=== PATIENT | male | born 1985 | race Caucasian/White ===

== ENCOUNTER 2024-08-15 19:20 | Emergency (ER) | payer OTHER ==
[~2024-08-15] VITALS: Ht 180.3 cm; Wt 82.3 kg
[2024-08-15] MEDS ORDERED: FEXO-116 PO (19:26)
[2024-08-15] MEDS: ACETAMINOPHEN 325 MG TAB PO ONE (20:45)
[2024-08-15] MEDS ORDERED: AMOX875T2 PO (20:54)
[2024-08-15] MEDS: AUGMENTIN 875 MG TAB PO ONE (20:57)
[2024-08-15] MEDS: BOOSTRIX VACCINE (TETANUS/DIPHTH/ACEL. PERTUSSIS) 0.5ML SYR IM.IMMUN ONE (20:58)
[2024-08-15] MEDS: OXYCODONE/APAP 5MG/325MG(HOME DOSE PACK) PO ONE (21:11)
[2024-08-15 21:34] VITALS: BP 129/91; TEMP 98.7; O2SAT 99
== END 2024-08-15 21:40 | disposition home or self-care (01) ==
LOC: M ED 19:20
DX: S61.451A Open bite of right hand, initial encounter (principal); Y92.019 Unspecified place in single-family (private) house as the place of occurrence of the external cause; Y93.9 Activity, unspecified; Y99.9 Unspecified external cause status; W54.0XXA Bitten by dog, initial encounter; Z23 Encounter for immunization; Z79.2 Long term (current) use of antibiotics; Z79.899 Other long term (current) drug therapy

== ENCOUNTER 2024-08-17 09:49 | Observation (INO) | payer OTHER ==
[~2024-08-17] VITALS: Ht 180.3 cm; Wt 80.9 kg
[~2024-08-17 09:49] MED LIST: AMOX875T2 PO; FEXO-189 PO
[2024-08-17] MEDS ORDERED: OXYC1TAB23 PO (09:57)
[2024-08-17] MEDS ORDERED: NAPR-885 PO (09:57)
[2024-08-17 11:04] LABS: BASO % 0.2 % (0.0-1.0); EOS # 0.1 10^3/uL (0.0-0.5); EOS % 1.2 % (0.0-3.0); HEMATOCRIT 41.5 % (42.0-52.0); HEMOGLOBIN 13.8 g/dl (13.5-17.5); LYMPH # 1.5 10^3/uL (1.5-5.0); LYMPH % 22.6 % (24.0-44.0); MEAN CORPUSCULAR HEMOGLOBIN 28.6 pg (27.0-33.0); MEAN CORPUSCULAR HGB CONC 33.3 g/dl (32.0-36.5); MEAN CORPUSCULAR VOLUME 85.9 fl (80.0-96.0); MONO # 0.5 10^3/uL (0.0-0.8); MONO % 8.3 % (2.0-8.0); NEUTROPHILS # 4.4 10^3/uL (1.5-8.5); NEUTROPHILS % 67.2 % (36.0-66.0); PLATELET COUNT, AUTOMATED 240 10^3/uL (150-450); RED BLOOD COUNT 4.83 10^6/uL (4.30-6.10); WHITE BLOOD COUNT 6.5 10^3/uL (4.0-10.0)
[2024-08-17 11:10] LABS: ERYTHROCYTE SEDIMENTATION RATE 15 mm/hr (0-15)
[2024-08-17 11:19] LABS: BLOOD UREA NITROGEN 20 MG/DL (9-23); C REACTIVE PROTEIN QUANTITATIV 5.49 MG/DL (<1.0); CALCIUM LEVEL 8.8 MG/DL (8.5-10.1); CARBON DIOXIDE LEVEL 29 MMOL/L (20-31); CHLORIDE LEVEL 107 MMOL/L (98-107); CREATININE FOR GFR 1.03 MG/DL (0.70-1.30); GLOMERULAR FILTRATION RATE > 60.0 (>60); GLUCOSE, FASTING 84 MG/DL (60-100); POTASSIUM SERUM 4.1 MMOL/L (3.5-5.1); SODIUM LEVEL 142 MMOL/L (136-145)
[2024-08-17] MEDS ORDERED: AMOX875T2 PO (11:45)
[2024-08-17] MEDS ORDERED: HOME MED LIST COMPLETE! XX SCH (11:50)
[2024-08-17] MEDS: AMPICILLIN SOD/SULBACTAM SOD 3 GM in SODIUM CHLORIDE 0.9% 100ML ADD 100 ML IV ONE (12:01)
[2024-08-17] MEDS: PERCOCET 5MG/325MG TAB PO ONE (12:43)
[2024-08-17] MEDS ORDERED: SENNA 8.6 MG TAB (SENOKOT) PO PRN (12:55)
[2024-08-17] MEDS ORDERED: AMPICILLIN SOD/SULBACTAM SOD 1.5 GM in DEXTROSE 5% (D5W) ADV/MINI-BAG 50 ML IV SCH (12:55)
[2024-08-17] MEDS: ACETAMINOPHEN 325 MG TAB PO PRN (18:39)
[2024-08-17] MEDS: oxyCODONE 5MG TAB PO PRN (18:39)
[2024-08-17] MEDS: AMPICILLIN SOD/SULBACTAM SOD 3 GM in SODIUM CHLORIDE 0.9% 100ML ADD 100 ML IV SCH (18:40)
[2024-08-17] MEDS: IBUPROFEN 600MG TAB PO PRN (22:42)
[2024-08-18 07:34] LABS: HEMATOCRIT 41.5 % (42.0-52.0); HEMOGLOBIN 14.1 g/dl (13.5-17.5); MEAN CORPUSCULAR HEMOGLOBIN 28.6 pg (27.0-33.0); MEAN CORPUSCULAR VOLUME 84.2 fl (80.0-96.0); PLATELET COUNT, AUTOMATED 244 10^3/uL (150-450); RED BLOOD COUNT 4.93 10^6/uL (4.30-6.10)
[2024-08-18 08:05] LABS: BLOOD UREA NITROGEN 20 MG/DL (9-23); CALCIUM LEVEL 8.8 MG/DL (8.5-10.1); CARBON DIOXIDE LEVEL 28 MMOL/L (20-31); CHLORIDE LEVEL 108 MMOL/L (98-107); CREATININE FOR GFR 1.02 MG/DL (0.70-1.30); GLOMERULAR FILTRATION RATE > 60.0 (>60); GLUCOSE, FASTING 105 MG/DL (60-100); SODIUM LEVEL 142 MMOL/L (136-145)
[2024-08-18 17:25] VITALS: BP 124/74; TEMP 98.8; O2SAT 97
[2024-08-18 20:00] VITALS: BP 122/68; TEMP 98.7; O2SAT 97
[2024-08-19 04:00] VITALS: BP 126/65; TEMP 97.8; O2SAT 95
[2024-08-19 07:26] LABS: HEMATOCRIT 38.6 % (42.0-52.0); HEMOGLOBIN 12.8 g/dl (13.5-17.5); MEAN CORPUSCULAR HEMOGLOBIN 28.1 pg (27.0-33.0); MEAN CORPUSCULAR HGB CONC 33.2 g/dl (32.0-36.5); MEAN CORPUSCULAR VOLUME 84.8 fl (80.0-96.0); PLATELET COUNT, AUTOMATED 210 10^3/uL (150-450); RED BLOOD COUNT 4.55 10^6/uL (4.30-6.10); WHITE BLOOD COUNT 4.3 10^3/uL (4.0-10.0)
[2024-08-19 07:52] LABS: BLOOD UREA NITROGEN 21 MG/DL (9-23); C REACTIVE PROTEIN QUANTITATIV 2.28 MG/DL (<1.0); CALCIUM LEVEL 8.5 MG/DL (8.5-10.1); CARBON DIOXIDE LEVEL 28 MMOL/L (20-31); CHLORIDE LEVEL 106 MMOL/L (98-107); GLOMERULAR FILTRATION RATE > 60.0 (>60); GLUCOSE, FASTING 90 MG/DL (60-100); POTASSIUM SERUM 4.1 MMOL/L (3.5-5.1); SODIUM LEVEL 142 MMOL/L (136-145)
[2024-08-19] MEDS ORDERED: OXYC1TAB23 PO (08:57)
[2024-08-19] MEDS ORDERED: AMOX875T2 PO (08:57)
== END 2024-08-19 13:25 | disposition home or self-care (01) ==
LOC: M ED 09:49 → M ED INP 13:12 → INTOOBSV 13:12 → M MS4PR 08-18 17:52
PROVIDERS: ADMIT Orthopaedic Surgery; ATTEND Orthopaedic Surgery
DX: L03.113 Cellulitis of right upper limb (principal); M65.90 Unspecified synovitis and tenosynovitis, unspecified site; J30.9 Allergic rhinitis, unspecified; Z79.2 Long term (current) use of antibiotics; Z79.899 Other long term (current) drug therapy
CPT/HCPCS: 36415; 80048; 85025; 85027; 85652; 86140; 87040; 96365; 96366; 96376; 99284; J0295